=== PATIENT | female | born 1950 | race Caucasian/White ===

== ENCOUNTER 2016-02-27 09:53 | Inpatient (IN) | payer OTHER ==
[~2016-02-27] VITALS: Ht 157.5 cm; Wt 69.9 kg
[2016-02-27] VITALS (16 sets, daily range): BP systolic 128–168; BP diastolic 54–80
[2016-02-27] MEDS ORDERED: IBUPROFEN800 MG PO (11:11)
[2016-02-27] MEDS ORDERED: AMBIEN10 MG PO (11:13)
[2016-02-27 11:19] LABS: CHLORIDE 109 mEq/L (99-109); POTASSIUM 3.7 mEq/L (3.7-5.4); SODIUM 140 mEq/L (136-147)
[2016-02-27 11:21] LABS: GLUCOSE 91 mg/dL (70-99)
[2016-02-27 11:23] LABS: ANION GAP 13 MEQ/L (2-14)
[2016-02-27 11:25] LABS: GFR ESTIMATE (CALCULATED) > 59 mL/min/
[2016-02-27 11:26] LABS: UREA NITROGEN (BUN) 15 mg/dL (9-23)
[2016-02-27 12:01] LABS: D-DIMER ELISA 2.21 mg/L FEU (< 0.57); INTER. NORMALIZED RATIO 1.1; PROTHROMBIN TIME 10.7 (9.2-11.2); PTT 24.4 (25-32)
[2016-02-27 12:06] LABS: TROP-I INTERPRETATION NEGATIVE; TROPONIN-I < 0.01 ng/mL (0.0-0.30)
[2016-02-27 13:57] LABS: BASOPHIL COUNT 0.1 K/uL (0-0.1); EOSINOPHIL (%) 0.7 % (0-5); EOSINOPHIL COUNT 0.1 K/uL (0-0.3); HEMATOCRIT 16.8 % (36.0-46.0); IMMATURE GRANULOCYTE (%) 0.1 % (0.0-0.7); IMMATURE GRANULOCYTE COUNT 0.1 K/uL; LYMPHOCYTE COUNT 1.4 K/uL (1.0-2.8); MCH 17.4 PG (29.0-34.0); MCHC 26.8 G/DL (30.0-36.0); MCV 64.9 FL (83-99); MEAN PLAT.VOLUME 10.4 uM^3 (9.5-12.4); MONOCYTE (%) 6.4 % (3-12); MONOCYTE COUNT 0.5 K/uL (0-0.8); NEUTROPHIL (%) 71.9 % (45-76); NEUTROPHIL COUNT 5.2 K/uL (1.8-6.4); PLATELET COUNT 402 K/uL (156-360); RBC DIS.WIDTH-CV 18.7 % (11.8-14.6); RBC DIS.WIDTH-SD 41.9 % (39-53); RED BLOOD COUNT 2.59 M/uL (3.80-5.20); WHITE BLOOD COUNT 7.2 K/uL (4.1-10.2)
[2016-02-27] MEDS ORDERED: GOODY POWDER PO (15:41)
[2016-02-27] MEDS ORDERED: VENTOLIN HFA18 GM IH (15:41)
[2016-02-27 19:27] LABS: METH RESISTANT S AUREUS PCR NEGATIVE (NEGATIVE)
[2016-02-27 19:43] LABS: PROBE CHECK PASS; SPECIMEN PROCESSING CONTROL PASS
[2016-02-28] VITALS (19 sets, daily range): BP systolic 113–149; BP diastolic 36–74
[2016-02-28 06:15] LABS: ANION GAP 10 MEQ/L (2-14); CHLORIDE 108 MEQ/L (99-109); GFR ESTIMATE (CALCULATED) > 59 mL/min/; GLUCOSE 97 mg/dL (70-99); SAMPLE HEMOLYSIS CHECK 0; SAMPLE ICTERIC CHECK 0; SAMPLE LIPEMIA CHECK 0; SODIUM 140 MEQ/L (136-147); UREA NITROGEN (BUN) 11 mg/dL (9-23)
[2016-02-28 06:25] LABS: MAGNESIUM 2.1 mg/dl (1.3-2.7)
[2016-02-28 07:13] LABS: HEMATOCRIT 30.9 % (36.0-46.0); MCHC 30.7 G/DL (30.0-36.0); MEAN PLAT.VOLUME 10.4 uM^3 (9.5-12.4); PLATELET COUNT 321 K/uL (156-360); RBC DIS.WIDTH-CV 23.7 % (11.8-14.6)
[2016-02-28 07:19] LABS: MCH 23.2 PG (29.0-34.0); MCV 75.6 FL (83-99); RED BLOOD COUNT 4.09 M/uL (3.80-5.20); WHITE BLOOD COUNT 10.2 K/uL (4.1-10.2)
[2016-02-28 11:44] LABS: MCV 75.6 FL (83-99)
[2016-02-28 19:50] LABS: HEMATOCRIT 32.5 % (36.0-46.0); MCV 75.9 FL (83-99)
[2016-02-29] VITALS (9 sets, daily range): BP systolic 100–150; BP diastolic 39–80
[2016-02-29 02:47] LABS: HEMATOCRIT 30.1 % (36.0-46.0); MCH 23.5 PG (29.0-34.0); MCHC 31.2 G/DL (30.0-36.0); MCV 75.3 FL (83-99); MEAN PLAT.VOLUME 10.3 uM^3 (9.5-12.4); PLATELET COUNT 328 K/uL (156-360); RBC DIS.WIDTH-CV 24.1 % (11.8-14.6); RBC DIS.WIDTH-SD 63.6 % (39-53); WHITE BLOOD COUNT 10.6 K/uL (4.1-10.2)
[2016-02-29 03:16] LABS: CHLORIDE 111 mEq/L (99-109); POTASSIUM 3.9 mEq/L (3.7-5.4); SODIUM 142 mEq/L (136-147)
[2016-02-29 03:26] LABS: GLUCOSE 115 mg/dL (70-99)
[2016-02-29 03:30] LABS: GFR ESTIMATE (CALCULATED) > 59 mL/min/
[2016-02-29 03:31] LABS: UREA NITROGEN (BUN) 14 mg/dL (9-23)
[2016-02-29 08:16] LABS: FERRITIN 4 NG/ML (10-291)
[2016-02-29 10:48] LABS: HEMATOCRIT 32.5 % (36.0-46.0); MCV 76.5 FL (83-99)
[2016-02-29 16:59] LABS: HEMATOCRIT 31.7 % (36.0-46.0); MCV 76.2 FL (83-99)
[2016-02-29 23:16] LABS: HEMATOCRIT 30.8 % (36.0-46.0); MCV 76.6 FL (83-99)
[2016-03-01] VITALS (9 sets, daily range): BP systolic 110–149; BP diastolic 53–70
[2016-03-01 06:52] LABS: MCV 76.2 FL (83-99)
[2016-03-01 06:56] LABS: PROTHROMBIN TIME 10.4 (9.2-11.2); PTT 66.4 (25-32)
[2016-03-02 04:00] VITALS: BP 123/65
[2016-03-02 07:16] LABS: HEMATOCRIT 34.8 % (36.0-46.0); MCV 76.5 FL (83-99)
[2016-03-02 07:29] VITALS: BP 114/60
[2016-03-02 07:37] LABS: INTER. NORMALIZED RATIO 1.1; PROTHROMBIN TIME 10.7 (9.2-11.2)
[2016-03-02 12:55] LABS: HEMATOCRIT 35.7 % (36.0-46.0); MCV 76.9 FL (83-99)
[2016-03-02 15:31] VITALS: BP 128/61
[2016-03-02 23:05] VITALS: BP 117/56
[2016-03-03 01:11] LABS: HEMATOCRIT 34.4 % (36.0-46.0); MCV 76.1 FL (83-99)
[2016-03-03 07:58] LABS: EOSINOPHIL COUNT 0.1 K/uL (0-0.3); HEMATOCRIT 34.4 % (36.0-46.0); IMMATURE GRANULOCYTE (%) 0.3 % (0.0-0.7); MCH 23.4 PG (29.0-34.0); MCHC 30.2 G/DL (30.0-36.0); MCV 77.3 FL (83-99); MONOCYTE (%) 9.3 % (3-12); MONOCYTE COUNT 0.7 K/uL (0-0.8); NEUTROPHIL (%) 76.1 % (45-76); NEUTROPHIL COUNT 5.9 K/uL (1.8-6.4); RBC DIS.WIDTH-CV 25.6 % (11.8-14.6); RBC DIS.WIDTH-SD 70.1 % (39-53); RED BLOOD COUNT 4.45 M/uL (3.80-5.20); WHITE BLOOD COUNT 7.8 K/uL (4.1-10.2)
[2016-03-03 08:07] LABS: ALKALINE PHOSPHATASE 160 IU/L (3-129); ANION GAP 8 MEQ/L (2-14); CHLORIDE 106 MEQ/L (99-109); GFR ESTIMATE (CALCULATED) > 59 mL/min/; GLUCOSE 88 mg/dL (70-99); POTASSIUM 4.1 MEQ/L (3.7-5.4); SAMPLE HEMOLYSIS CHECK 0; SAMPLE ICTERIC CHECK 0; SAMPLE LIPEMIA CHECK 0; SODIUM 140 MEQ/L (136-147); TOTAL BILIRUBIN 0.6 MG/DL (0.0-1.0); UREA NITROGEN (BUN) 17 mg/dL (9-23)
[2016-03-03 08:10] VITALS: BP 115/59
[2016-03-03] MEDS ORDERED: FERROUS SULFAT325 MG PO (09:42)
[2016-03-03] MEDS ORDERED: NICOTINE PATCH1 EAC1 TD (09:42)
[2016-03-03 09:44] LABS: PLAT.SUFFICIENCY INCREASED; PLATELET CLUMPS PRESENT; PLATELET COUNT UNABLE TO REPORT K/uL (156-360)
[2016-03-03] MEDS ORDERED: ADVAIR HFA120 INHALA IH (09:44)
[2016-03-03] MEDS ORDERED: SPIRIVA RESPIMAT4 GM IH (09:44)
[2016-03-03] MEDS ORDERED: PREDNISONE10 MG PO (09:44)
[2016-03-03] MEDS ORDERED: PANTOPRAZOLE SO40 MG PO (09:44)
[2016-03-03] MEDS ORDERED: XARELTO15 MG PO (09:44)
[2016-03-03] MEDS ORDERED: XARELTO20 MG PO (09:44)
[2016-03-03 11:11] LABS: HEMATOCRIT 35.7 % (36.0-46.0); MCV 76.6 FL (83-99)
== END 2016-03-03 12:15 | disposition home or self-care (01) | DRG 176 ==
LOC: EME 09:53 → 4WEST 15:18 → EDOF 15:18 → 2EAST 15:18 → EDOF 15:18 → 4WEST 17:39 → 2EAST 03-01 16:46
PROVIDERS: Emergency Medicine; Hospitalist; Internal Medicine Critical Care Medicine; Internal Medicine Pulmonary Disease; Physician Assistant
DX: I26.99 Other pulmonary embolism without acute cor pulmonale (principal); J44.1 Chronic obstructive pulmonary disease with (acute) exacerbation; I82.401 Acute embolism and thrombosis of unspecified deep veins of right lower extremity; D50.9 Iron deficiency anemia, unspecified; F17.200 Nicotine dependence, unspecified, uncomplicated
CPT/HCPCS: 71020; 71275; 74177; 80048; 80053; 82272; 82607; 82728; 82746; 83735; 83880; 84100; 84484; 85014; 85018; 85025; 85025 91; 85027; 85379; 85610; 85730; 86850; 86900; 86901; 86920; 87641; 93306; 93971; 94640; 94640 76; 94644; 99202; 99281; 99285; J1200; J1650; J2930; J7050; J7512; P9016; Q0138

== ENCOUNTER 2016-03-16 18:54 | Emergency (ER) | payer OTHER ==
[~2016-03-16] VITALS: Ht 160 cm; Wt 72.6 kg
[~2016-03-16 18:54] MED LIST: ADVAIR HFA120 INHALA IH; AMBIEN10 MG PO; FERROUS SULFAT325 MG PO; GOODY POWDER PO; IBUPROFEN800 MG PO; NICOTINE PATCH1 EAC1 TD; PANTOPRAZOLE SO40 MG PO; PREDNISONE10 MG PO; SPIRIVA RESPIMAT4 GM IH; VENTOLIN HFA18 GM IH; XARELTO15 MG PO; XARELTO20 MG PO
[2016-03-16] MEDS ORDERED: PEPCID20 MG PO (19:35)
[2016-03-16] MEDS ORDERED: BENADRYL25 MG PO (19:35)
[2016-03-16 19:54] VITALS: BP 138/72
== END 2016-03-16 19:55 | disposition home or self-care (01) ==
LOC: EME 18:54
DX: T78.40XA Allergy, unspecified, initial encounter (principal); F17.200 Nicotine dependence, unspecified, uncomplicated
CPT/HCPCS: 93005; 99281; 99284

== ENCOUNTER → 2016-04-13 | Outpatient (CLI) | payer OTHER ==
[~2016-04-13] MED LIST changes: +BENADRYL25 MG PO; +PEPCID20 MG PO
== END | disposition home or self-care (01) ==
LOC: RES 09:39
DX: J44.9 Chronic obstructive pulmonary disease, unspecified (principal)
CPT/HCPCS: 94060; 94726; 94729